=== PATIENT | male | born 1970 | race Caucasian/White ===

== ENCOUNTER → 2022-06-23 | Outpatient (CLI) | payer OTHER | LOC: M RAD 06:37 | PROVIDERS: ATTEND Surgery | DX: I83.893 Varicose veins of bilateral lower extremities with other complications (principal) ==

== ENCOUNTER 2023-12-11 08:11 | Day surgery (SDC) | payer OTHER ==
[~2023-12-11] VITALS: Ht 180.3 cm; Wt 84.3 kg
[2023-12-11] MEDS: NS 1,000 ML IV ONE (06:00)
[~2023-12-11 08:11] MED LIST: BENA-8 PO; CHOL25TA2 PO; LABE20TAB PO; OMEP-173 PO; OMEP40CA5 PO
[2023-12-11] MEDS ORDERED: propofoL 500 MG/50 ML VIAL As Ordered ONE (10:33)
[2023-12-11 10:39] VITALS: TEMP 97.1
[2023-12-11 11:04] VITALS: BP 129/75; O2SAT 100
== END 2023-12-11 11:12 | disposition home or self-care (01) ==
LOC: M OPP 08:11
PROVIDERS: ATTEND Internal Medicine Gastroenterology
DX: Z12.11 Encounter for screening for malignant neoplasm of colon (principal); Z12.12 Encounter for screening for malignant neoplasm of rectum; K63.5 Polyp of colon; K57.30 Diverticulosis of large intestine without perforation or abscess without bleeding; K64.8 Other hemorrhoids; K21.9 Gastro-esophageal reflux disease without esophagitis; I10 Essential (primary) hypertension; Z79.899 Other long term (current) drug therapy; F17.220 Nicotine dependence, chewing tobacco, uncomplicated